=== PATIENT | female | born 1965 | race Hispanic/Latino ===

== ENCOUNTER 2024-01-06 18:14 | Emergency (ER) | payer BC, SELFPAY ==
[2024-01-06 18:16] VITALS: BP 120/83
[2024-01-06 18:33] LABS: COVID-19 Antigen Positive (Negative)
--- NOTE | 2024-01-06 23:35 | ED.GENMED ---
History of Present Illness
General
Chief Complaint: Cold/Flu/URI Symptoms
Source: patient
Exam Limitations: none
Time Seen by Provider: 01/06/24 19:31
Nursing documentation reviewed up to this point in time: agreed with
History of Present Illness
History of Present Illness:
Patient to ED wtih complaint of fever, sorethroat, headache, fatigue. Symptoms started on Thursday. Brought self to ED for eval.
Past History
Past History
ED Past Medical History: Cancer and Hypothyroidism
ED Past Surgical History: Gynecological, Orthopedic and Other
Social History
Tobacco: Non-smoker
Alcohol: None
Drug: None
Personal:
Living: with family
Review of Systems
Review of Systems
Allergies reviewed?: Yes
All Other Systems: ROS reviewed and negative except as documented in HPI and ROS
Constitutional: Reports fatigue
EENT: Reports sore throat
Respiratory: Reports no symptoms
Cardiac: Reports no symptoms
ABD/GI: Reports no symptoms
: Reports no symptoms
Musculoskeletal: Reports other (generalized body aches)
Skin: Reports no symptoms
Neurological: Reports no symptoms
Psychiatric: Reports no symptoms
Phy Exam
General Physical Exam
General Presentation: well appearing and no apparent distress
General age: appears stated age
General Skin: warm and dry
General Habitus: normal
ENT Exam
ENT Exam: neck supple, pharyngeal erythema and swallowing well
Cardiovascular Exam
Cardiovascular Exam: regular rate/rhythm and no edema
Pulmonary Exam
Pulmonary Exam: lungs clear and no respiratory distress
Musculoskeletal Exam
Musculoskeletal Exam: full ROM
Skin Exam
Skin Exam: normal color, warm/dry and no rash
Psychiatric Exam
Psychiatric Exam: normal mood/affect
Course
Orders/Labs/Results
Orders:
Orders
01/06/24 18:20
COVID-19 Antigen Urgent
Source: Nasal Swab
Influenza A+B Rapid Molecular Urgent
TENISHA Source: Nasal Swab
Specimen Description:
01/06/24 20:13
Rapid Strep Group A Urgent
TENISHA Source: Throat/Pharynx
Specimen Description:
Date Specimen was Collected: 01/06/24
Time Specimen was Collected: 20:12
Abnormal Lab Results
01/06/24
18:20
SARS-CoV-2 Antigen Positive A
(Negative)
Vital Signs
Initial and Last Documented VS:
Initial Vital Signs
Temp Pulse Resp BP Pulse Ox
100 F 72 16 120/83 93
01/06/24 18:16 01/06/24 18:16 01/06/24 18:16 01/06/24 18:16 01/06/24 18:16
Last Documented Vital Signs
Temp Pulse Resp BP Pulse Ox
100 F 72 16 120/83 93
01/06/24 18:16 01/06/24 18:16 01/06/24 18:16 01/06/24 18:16 01/06/24 18:16
*Critical Care Note
Total Time (30-74mins, 75-104mins- exclusive of procedures): Not Applicable
ED Attending Note
-
Portions of this chart may have been created with voice recognition software.� Occasional wrong word or��sound alike� substitutions may have occurred due to the inherent limitations of voice recognition software.
Discharge Plan
Departure
Patient Disposition: Home (Routine Discharge)
Date of Disposition: 01/06/24
Time of Disposition: 19:55
Patient with high blood pressure during this ER visit?: No
Condition: Good
Covid-19: Not Applicable
Discharge Problem:
COVID-19
Instructions: Fever, Adult (DC), COVID-19 ED, Coronavirus Home Quarantine
Activity Restrictions/Additional Instructions:
Follow up with your family doctor.
Interventions
Interventions:
*Risk Screen - Suicide Last Done: 01/06/24 20:22
*General Assessment Last Done: 01/06/24 20:22
*Neglect/Abuse Screening Last Done: 01/06/24 20:22
ED- Fall Risk Assessment Last Done: 01/06/24 20:20
*ED COVID-19 Vaccine History Last Done: 01/06/24 20:22
*Nursing Disposition Last Done: 01/06/24 20:23
ED- Pulmonary Assessment Last Done: 01/06/24 20:20
Discharge Date and Time
Discharge Date/Time: 01/06/24 20:23
Print Language: [id number]
== END 2024-01-06 20:23 | disposition home or self-care (01) ==
LOC: EMR 18:14
PROVIDERS: EMERGENCY PHYSICIAN Student in an Organized Health Care Education/Training Program; FAMILY PHYSICIAN Internal Medicine Geriatric Medicine
DX: U07.1 COVID-19 (principal)
CPT/HCPCS: 99283; 87070; 87502; 87811; 87880